=== PATIENT | female | born 1955 ===

== ENCOUNTER 2017-05-30 04:55 | Day surgery (SDC) | payer BC ==
[2017-05-29 08:11] VITALS: BMI 23.0
[2017-05-30] MEDS ORDERED: LIDOCAINE HCL/PF 2% SDV 5ML VIAL ONE (08:45)
[2017-05-30] MEDS ORDERED: ROCURONIUM BROMIDE 50 MG/5 ML VIAL ONE (08:46)
[2017-05-30] MEDS ORDERED: PROPOFOL 20 ML ONE ×2 (08:46)
[2017-05-30] MEDS ORDERED: DESFLURANE GAS 240 ML BOTTLE IH ONE (08:48)
[2017-05-30] MEDS ORDERED: BUPIVACAINE HCL/PF 0.5% (5MG/ML) 10 ML VIAL ONE (09:00)
--- NOTE | 2017-05-30 09:24 | HP ---
Past Medical History - Primary Care Physician PCP:: Satya Burger - Admission Chief Complaint: endometrial polyp, right ovarian cyst History of Present Illness: 61 yo f with hx of EM polyp, and rt ovarian cyst which has recently increased in size with normal CA 125, admitted for hysteroscopy polypectomy, bilateral salpingooophorectomy, rba to procedure has been discussed with patient History Source: Patient Limitations to Obtaining History: No Limitations - Past Surgical History Hx Myomectomy: No Hx Transabdominal Cerclage: No - Smoking History Smoking history: Never smoked - Alcohol/Substance Use Hx Alcohol Use: Yes (rarely) - Social History Usual Living Arrangement: Yes: With Spouse History of Recent Travel: No Home Medications - Allergies Allergies/Adverse Reactions: Allergies Allergy/AdvReac Type Severity Reaction Status Date / Time Penicillins Allergy Mild Verified 05/30/17 08:16 - Home Medications Home Medications: Ambulatory Orders Calcium Carbonate [Tums] 200 mg PO DAILY 05/29/17 Cholecalciferol (Vitamin D3) [Vitamin D3] 1,000 unit PO DAILY 05/29/17 Multivit-Min/FA/Lycopen/Lutein [Centrum Silver Tablet] 1 each PO DAILY 05/29/17 Review of Systems - Review of Systems Constitutional: reports: No Symptoms Eyes: reports: No Symptoms HENT: reports: No Symptoms Cardiovascular: reports: No Symptoms Respiratory: reports: No Symptoms Gastrointestinal: reports: Abdominal Pain Genitourinary: reports: No Symptoms Breasts: reports: No Symptoms Reported Musculoskeletal: reports: No Symptoms Integumentary: reports: No Symptoms Neurological: reports: No Symptoms Endocrine: reports: No Symptoms Hematology/Lymphatic: reports: No Symptoms Psychiatric: reports: No Symptoms Physical Exam-FIRER RETORT Vital Signs: Vital Signs Temperature 98.4 F 05/30/17 07:59 Pulse Rate 66 05/30/17 07:59 Respiratory Rate 16 05/30/17 07:59 Blood Pressure 117/59 05/30/17 07:59 O2 Sat by Pulse Oximetry (%) 99 05/30/17 08:00 Constitutional: Yes: Well Nourished, No Distress, Calm Eyes: Yes: WNL, Conjunctiva Clear, EOM Intact HENT: Yes: WNL, Atraumatic, Normocephalic Neck: Yes: WNL, Supple, Trachea Midline Cardiovascular: Yes: WNL, Regular Rate and Rhythm Respiratory: Yes: WNL, Regular, CTA Bilaterally Gastrointestinal: Yes: WNL ...Rectal Exam: Yes: WNL Renal/: Yes: WNL Pelvis: Yes: WNL External Genitalia: Yes: Normal Cervix: Yes: Normal Uterus: Yes: Normal Adnexa: Not Palpable: Left, Right (rt tender) Breast(s): Yes: WNL Musculoskeletal: Yes: WNL Extremities: Yes: WNL Edema: No Integumentary: Yes: WNL Neurological: Yes: WNL, Alert, Oriented ...Motor Strength: WNL Psychiatric: Yes: WNL, Alert, Oriented Problem List - Problem (1) Endometrial polyp Code(s): N84.0 - POLYP OF CORPUS UTERI (2) Right ovarian cyst Code(s): N83.201 - UNSPECIFIED OVARIAN CYST, RIGHT SIDE Assessment/Plan hysteroscopy D&C , polypectomy . laparoscopic BSO
[2017-05-30] MEDS ORDERED: CLINDAMYCIN 600 MG PREMIX BAG IVPB ONE (09:30)
[2017-05-30] MEDS ORDERED: DEXAMETHASONE SOD PHOSPHATE 4 MG/1 ML VIAL ONE (09:41)
[2017-05-30] MEDS ORDERED: CLINDAMYCIN PHOSPHATE 600 MG/4 ML VIAL ONE (09:41)
[2017-05-30] MEDS ORDERED: BUPIVACAINE HCL/PF 0.5% (5MG/ML) 10 ML VIAL IJ ONE (09:50)
[2017-05-30] MEDS ORDERED: ePHEDrine SULFATE 50 MG/1 ML AMPULE ONE (10:00)
[2017-05-30] MEDS ORDERED: ESMOLOL HCL 10 ML ONE (10:11)
[2017-05-30] MEDS ORDERED: GLYCOPYRROLATE 0.2 MG/1 ML VIAL ONE (10:14)
[2017-05-30] MEDS ORDERED: NEOSTIGMINE METHYLSULFATE 0.5 MG/ML - 10 ML MDV ONE (10:14)
[2017-05-30] MEDS ORDERED: KETOROLAC TROMETHAMINE 30 MG/1 ML VIAL ONE (10:30)
[2017-05-30] MEDS ORDERED: oxyCODONE HCL 5 MG TABLET PO PRN ×3 (10:53→11:24)
[2017-05-30] MEDS ORDERED: ONDANSETRON 4 MG/2 ML VIAL IVPUSH PRN (10:53)
[2017-05-30] MEDS ORDERED: LACTATED RINGERS SOLUTION 1,000 ML IV SCH (11:00)
[2017-05-30 11:11] VITALS: TEMP 97.6
[2017-05-30 11:21] VITALS: PULSE 81
[2017-05-30] MEDS ORDERED: IBUPROFEN 600 MG TABLET (FP) PO PRN (11:24)
[2017-05-30] MEDS ORDERED: IBUPROFEN 800 MG/8 ML IJ IVPB PRN (11:24)
[2017-05-30] MEDS ORDERED: ELECTROLYTE-148 SOLN 1,000 ML IV SCH (11:30)
[2017-05-30 12:32] VITALS: BP 115/69
[2017-05-30] MEDS ORDERED: ONDANSETRON 4 MG/2 ML VIAL ONE (12:50)
[2017-05-30] MEDS: ONDANSETRON 4 MG/2 ML VIAL IVPUSH PRN (12:57)
--- NOTE | 2017-05-30 16:15 | OP ---
DATE OF OPERATION: 05/30/2017 PREOPERATIVE DIAGNOSIS: Endometrial polyp, right ovarian cyst. POSTOPERATIVE DIAGNOSIS: Endometrial polyp, right ovarian cyst. Fibroid uterus. PROCEDURE: Hysteroscopy, dilation and curettage, polypectomy, and laparoscopic bilateral salpingoophorectomy. SURGEON: Satya Burger M.D. PARTNER: Trice Fox M.D. ESTIMATED BLOOD LOSS: 25 mL. OPERATION: Patient was taken to operating room, had adequate general anesthesia, into position. Examination under anesthesia revealed the external genitalia to be normal. Vagina was atrophic. Cervix was clean, no gross lesion. Uterus normal size. Adnexa, no masses were palpable. Then, with a weighted speculum in the vagina, anterior lip of the cervix was grasped with a single-hook tenaculum. And then cervix was slightly dilated, and then sounded to 6 cm. Then the hysteroscope was introduced. Visualization of endometrial cavity, endometrium appeared to be atrophic. Both cornual region was identified. There was a small polyp at the upper cervical os which was small and floating. Then cervix was gradually elevated with Hegar dilator, and then endometrium curetted, and the polyp was removed. Then hysteroscope was introduced, no polyp was seen. Then Hulka was introduced into the uterine cavity for manipulation and a Buchanan inserted. Patient was prepped and draped for a . A small infraumbilical skin incision was made. Veress needle was introduced. Pneumoperitoneum established. A 5-mm trocar was introduced to the umbilical area and a 10-mm under direct vision to the left epigastric, and a 5-mm through the right epigastric area, and then visualization of the upper abdomen showed it to be normal, and the right ovary had a large 6 by approximately 6, 7 cm bluish mass with no excrescence, no adhesions. Cul-de-sac was free of adhesion. Bladder was normal. The left tube and ovary were normal. Uterus has a small subserous leiomyoma approximately 2 cm. No other abnormality was found. Then the infundibulopelvic ligament on the right side was grasped with a Ligasure bipolar cautery, cauterized, cut, and then the tube and ovary were removed along the mesosalpinx area, and then the ovarian ligament was cut at the cornual region of the uterus, and then the right adnexa was removed and placed in the cul-de-sac. The same procedure repeated for the opposite side. Then an Endocatch was inserted, and the specimens were placed in the Endocatch, and was removed in its entirety. Then pelvic cavity at that time was irrigated, no active bleeding was seen, and then instruments withdrawn. The left hypogastric incision was closed with interrupted suture of 0 Vicryl, and then the skin was closed with 3-0 Biosyn subcuticular suture. The umbilical area was closed with interrupted suture of 0 Vicryl, and then interrupted suture of 3-0 Biosyn. Then the skin was closed with interrupted stitch of 3-0 Biosyn. Patient tolerated procedure well, left the OR in good condition. Navin [id number]
--- NOTE | 2017-05-31 14:07 | PATH ---
Cytology Non-Gynecological Report Patient Name: NANCY MEDINA [facility]. Rec. #: [id number] /Age/Gender: 1955 (Age: 61) / F Account: [id number] Location: [facility] SURGICAL Taken: 05/30/2017 Received: 05/30/2017 Reported: 05/31/2017 Physicians: Satya Burger M.D. Specimen(s) Received PELVIC WASHINGS Clinical History Right ovarian cyst/endometrial polyp Final Diagnosis PELVIC WASHING: SATISFACTORY FOR EVALUATION NO MALIGNANT CELLS IDENTIFIED. FEW MESOTHELIAL CELLS AND FEW LYMPHOCYTES PRESENT. Comment: Recommend correlation with clinical findings and follow up as clinically indicated. See concurrent specimen [id number]. Electronically Signed Nancy Braden M.D. Gross Description Approximately 50 cc of bloody fluid received fresh. Two cytofunnels and one cellblock prepared.
--- NOTE | 2017-06-01 10:06 | PATH ---
Surgical Pathology Report Patient Name: NANCY MEDINA [facility]. Rec. #: [id number] /Age/Gender: 1955 (Age: 61) / F Account: [id number] Location: [facility] SUR[facility] Taken: 05/30/2017 Received: 05/30/2017 Reported: 06/01/2017 Physicians: Satya Burger M.D. Specimen(s) Received A: RIGHT FALLOPIAN TUBE AND OVARY B: ENDOMETRIAL CURETTINGS POLYP C: LEFT FALLOPIAN TUBE AND OVARY Clinical History Right ovarian cyst/endometrial polyp Intraoperative Consult Diagnosis Right fallopian tube and ovary, frozen section: Benign serous cystadenoma. Mark Alvarez M.D., 05/30/17 Final Diagnosis A. RIGHT FALLOPIAN TUBE AND OVARY, LAPAROSCOPIC SALPINGO-OOPHORECTOMY(FS): SEROUS CYSTADENOMA MEASURING 4.5 X 3.5 CM. UNREMARKABLE FALLOPIAN TUBE. B. ENDOMETRIAL CURETTINGS, DILATATION AND CURETTAGE: INACTIVE ENDOMETRIUM AND SCANT BENIGN CERVICAL TISSUE. C. LEFT FALLOPIAN TUBE AND OVARY, LAPAROSCOPIC SALPINGO-OOPHORECTOMY: OVARY WITH BENIGN FOLLICULAR CYSTS. FALLOPIAN TUBE WITH PARATUBAL CYST. Electronically Signed Nancy Braden M.D. Gross Description A. Received fresh labeled "right fallopian tube and ovary," is a 4 cm in length portion of fallopian tube. No fimbria are present. The outer surface is menchaca-pink and smooth. Sectioning reveals unremarkable lumen. Separately received within the same container is a 4.5 x 3.5 x 2.0 cm cystic ovary. The outer surface is menchaca and smooth with a focal defect. There is no fluid present within the lumen. The inner lining is smooth with a focus of yellow discoloration. There is no normal ovarian parenchyma identified. Fabrication Specialist sections of the cyst are submitted for frozen section. Fabrication Specialist sections are submitted in 6 cassettes as follows: 1-frozen section residue; 7-pputt-fyazlvsa of fallopian tube; 6-9-dkkyjvmknckaor ovarian cyst. B. Received in formalin labeled "endometrial curettings and polyp," is a 0.8 x 0.6 x 0.2 cm aggregate of menchaca-brown soft tissue fragments. No definite polyp is identified grossly. The formalin is filtered and the specimen is entirely submitted in one cassette. C. Received in formalin labeled "left fallopian tube and ovary," is a 3.5 cm in length fimbriated fallopian tube. The outer surface is davis purple and smooth. Sectioning reveals an unremarkable lumen. There is a 2.2 x 1.5 x 0.9 cm ovary attached to the fallopian tube. The outer surface of the ovary is menchaca and smooth. Sectioning reveals unremarkable ovarian parenchyma. Fabrication Specialist sections are submitted in 3 cassettes as follows: 1-fallopian tube fimbria; 2-cross sections of fallopian tube; 3-ovary. 05/30/2017 [facility]05/30/2017
== END 2017-05-30 14:22 | disposition home or self-care (01) ==
LOC: JASU-SURG 04:55
PROVIDERS: ATTEND Obstetrics & Gynecology
PROC: 0UDB8ZX Extraction of Endometrium, Via Natural or Artificial Opening Endoscopic, Diagnostic (ICD-10-PCS; 2017-05-30)
PROC: 0UB24ZZ Excision of Bilateral Ovaries, Percutaneous Endoscopic Approach (ICD-10-PCS; principal; 2017-05-30 09:00)
PROC: 0UB74ZZ Excision of Bilateral Fallopian Tubes, Percutaneous Endoscopic Approach (ICD-10-PCS; 2017-05-30 09:00)
PROC: 0UB98ZX Excision of Uterus, Via Natural or Artificial Opening Endoscopic, Diagnostic (ICD-10-PCS; 2017-05-30 09:00)
DX: N84.0 Polyp of corpus uteri (principal); D25.9 Leiomyoma of uterus, unspecified; N83.201 Unspecified ovarian cyst, right side
CPT/HCPCS: 88108; 88305-TC; 88307-TC; 88331-TC; 94760